=== PATIENT | female | born 1950 | race Asian ===

== ENCOUNTER 2017-11-21 09:26 | Inpatient (IN) | payer OTHER ==
[~2017-11-21] VITALS: Ht 162.6 cm; Wt 59.1 kg
[2017-11-21 09:38] VITALS: Ht 162.6 cm; Wt 59.1 kg
[2017-11-21 11:02] LABS: CALCIUM 8.8 mg/dL (8.5-10.1); CARBON DIOXIDE 29.5 mmol/L (21-32); CHLORIDE SERUM 103 mmol/L (98-107); CREATININE SERUM 0.9 mg/dL (0.6-1.0); GFR1 > 60 mL/min; GLUCOSE SERUM 94 mg/dL (74-106); POTASSIUM SERUM 3.9 mmol/L (3.5-5.1); SODIUM SERUM 141 mmol/L (136-145)
[2017-11-21 11:07] LABS: ALBUMIN 3.8 g/dL (3.4-5.0); ALKALINE PHOSPHATASE 67 U/L (46-116); ALT/SGPT 9 U/L (14-59); AST/SGOT 19 U/L (15-37)
[2017-11-21 11:15] LABS: BASOPHIL % 0.4 % (0-2); PLATELET COUNT 170 x10^3mcL (130-400); RED CELL DISTRIBUTION WIDTH 12.6 % (11.5-14.5)
[2017-11-21 12:28] LABS: UA SPECIFIC GRAVITY <=1.005 (1.005-1.035); microscopic required? YES; urine erythrocyte 1+ (NEGATIVE)
[2017-11-21 13:48] VITALS: BP 122/64
[2017-11-21 14:09] LABS: UA SPECIFIC GRAVITY <=1.005 (1.005-1.035); microscopic required? YES; urine erythrocyte 1+ (NEGATIVE)
[2017-11-21 14:38] LABS: T3 TOTAL 0.59 ng/mL
[2017-11-21 14:55] LABS: MAGNESIUM 2.7 mg/dL (1.8-2.4); PHOSPHOROUS 3.4 mg/dL (2.5-4.9)
[2017-11-21 14:57] LABS: CHOLESTEROL/HDL RATIO 1.8
[2017-11-21 15:24] LABS: AMPHETAMINE QUAL UR NONE DETECTED (See below)
[2017-11-21 15:34] LABS: FREE T4 0.99 ng/dL (0.76-1.46); FREE THYROXINE INDEX 2.3 ug/dL (1.4-4.5); T4(THYROXINE) 6.5 ug/dL (4.7-13.3)
[2017-11-21 16:03] VITALS: BP 105/60
[2017-11-21 21:18] VITALS: BP 103/62
[2017-11-22 06:04] LABS: BASOPHIL % 0.1 % (0-2); PLATELET COUNT 170 x10^3mcL (130-400)
[2017-11-22 06:11] LABS: CALCIUM 8.3 mg/dL (8.5-10.1); CARBON DIOXIDE 26.7 mmol/L (21-32); CHLORIDE SERUM 107 mmol/L (98-107); CREATININE SERUM 0.8 mg/dL (0.6-1.0); GFR1 > 60 mL/min; GLUCOSE SERUM 128 mg/dL (74-106); POTASSIUM SERUM 4.2 mmol/L (3.5-5.1); SODIUM SERUM 142 mmol/L (136-145)
[2017-11-22 06:20] VITALS: BP 97/58
[2017-11-22 09:08] VITALS: BP 101/59
[2017-11-22] MEDS ORDERED: KEPPRA500 MG PO (12:03)
[2017-11-22] MEDS ORDERED: ZANTAC 150150 MG PO (12:05)
[2017-11-22 17:23] VITALS: BP 96/55
[2017-11-22 20:54] VITALS: BP 94/53
[2017-11-23 06:08] LABS: BASOPHIL % 0.2 % (0-2); PLATELET COUNT 156 x10^3mcL (130-400); RED CELL DISTRIBUTION WIDTH 12.2 % (11.5-14.5)
[2017-11-23 06:12] VITALS: BP 111/64
[2017-11-23 06:39] LABS: CALCIUM 7.9 mg/dL (8.5-10.1); CARBON DIOXIDE 28.7 mmol/L (21-32); CHLORIDE SERUM 113 mmol/L (98-107); CREATININE SERUM 0.9 mg/dL (0.6-1.0); GFR1 > 60 mL/min; GLUCOSE SERUM 99 mg/dL (74-106); POTASSIUM SERUM 4.1 mmol/L (3.5-5.1); SODIUM SERUM 147 mmol/L (136-145)
[2017-11-23 09:16] VITALS: BP 107/61
[2017-11-23 11:16] VITALS: BP 107/61
[2017-11-23] MEDS ORDERED: CIPRO500 MG PO (12:50)
[2017-11-23] MEDS ORDERED: COLACE100 MG PO (12:50)
== END 2017-11-23 14:19 | disposition home or self-care (01) | DRG 233 ==
LOC: ED 09:26 → MU 12:29
PROVIDERS: Emergency Medicine; Family Medicine Addiction Medicine; Internal Medicine
PROC: 0DTJ4ZZ Resection of Appendix, Percutaneous Endoscopic Approach (ICD-10-PCS; principal; 2017-11-21 19:00)
DX: K35.30 Acute appendicitis with localized peritonitis, without perforation or gangrene (principal)
CPT/HCPCS: 83880; 84439; J0330; J1956; J2001; J2175; J2250; J2270; J2405; J2550; J2704; J2710; J3010; J3490; J7030; J7120; Q0092; Q0163; Q9967